=== PATIENT | male | born 1955 | race Caucasian/White ===

== ENCOUNTER → 2021-01-22 07:10 | Outpatient (CLI) | payer MEDICARE, SELFPAY ==
[2021-01-23 19:27] LABS: SARS-CoV-2 RNA PCR Negative
== END ==
PROVIDERS: PCP Family Medicine; Visit Provider Pain Medicine Pain Medicine
DX: Z01.812 Encounter for preprocedural laboratory examination (principal); Z20.822 Contact with and (suspected) exposure to COVID-19
CPT/HCPCS: C9803; U0003; U0005

== ENCOUNTER 2024-06-23 09:20 | Outpatient (CLI) | payer MEDICARE, SELFPAY ==
--- NOTE | ~2024-06-23 | XR_ITS ---
XR hip BI 2V w AP pelvis Ordering provider: Aracely Bennett, AIR DIRECTOR History: . Failed back surgical syndrome . Comparison: None. FINDINGS: BONES: No acute fracture or dislocation. HIP JOINT SPACES: Bilateral hip moderate to severe osteoarthritic changes SACROILIAC JOINT SPACES/LUMBAR SPINE: The sacroiliac joint spaces are normal. Mild degenerative [place] es of the visualized lower lumbar spine. Postoperative changes in the spine. PUBIC SYMPHYSIS: Normal. SOFT TISSUES: Normal. IMPRESSION: No acute osseous abnormality of the bilateral hips and pelvis. Bilateral hip moderate to severe osteoarthritic changes. Postoperative changes in the spine. Reviewed, dictated and finalized at location A.
--- NOTE | ~2024-06-23 | XR_ITS ---
3 VIEWS LUMBAR SPINE Ordering provider: Aracely Bennett, TUBULAR RIVETER History: . Failed back surgical syndrome . Comparison: March 15, 2009 FINDINGS: VERTEBRAL BODIES:Extension of the postoperative changes in the lower lumbar area and to the sacrum an d iliac bones no definite acute fracture. Previous Subluxation at the level of L2-L3 is noted. DISK SPACES: Disc spacers seen at the level of L3-L4 and L5-S1. Spinal canal stenosis at the level of L1 and L2 is noted.. SOFT TISSUES: Aortic atherosclerotic changes. IMPRESSION: No acute osseous abnormality lumbar spine. Spinal canal stenosis at the level of L1 and L2. Postoperative changes. Reviewed, dictated and finalized at location A.
== END 2024-06-23 09:21 | disposition home or self-care (01) ==
PROVIDERS: PCP Nurse Practitioner Family; Visit Provider Nurse Practitioner Family
DX: M48.061 Spinal stenosis, lumbar region without neurogenic claudication (principal); M16.0 Bilateral primary osteoarthritis of hip; M96.1 Postlaminectomy syndrome, not elsewhere classified
CPT/HCPCS: 72110; 73521